=== PATIENT | female | born 1980 | race African-American/Black ===

== ENCOUNTER 2018-07-23 00:12 | Emergency (ER) | payer SELFPAY ==
[~2018-07-23] VITALS: Ht 175.3 cm; Wt 132.0 kg
[2018-07-23 03:10] LABS: BASOPHILS % 0.9 % (0.0-2.0); EOSINOPHILS % 0.4 % (0.0-5.0); HEMATOCRIT. 36.3 % (36.0-48.0); HEMOGLOBIN. 12.2 g/dL (12.0-16.0); LYMPHOCYTES % 29.2 % (20.0-50.0); MEAN CORPUSCULAR HEMOGLOBIN 28.6 pg (28.0-32.0); MEAN CORPUSCULAR VOLUME 85.1 fL (81.0-99.0); MEAN PLATELET VOLUME 8.6 fl (7.4-10.4); MONOCYTES % 6.3 % (2.0-8.0); NEUTROPHILS % 63.2 % (40.0-76.0); PLATELET 289 x1000/uL (130-400); RED BLOOD CELL COUNT 4.27 mill/uL (4.2-5.4); RED CELL DISTRIBUTION WIDTH 14.3 % (11.6-14.6)
[2018-07-23 03:11] LABS: CHLORIDE 109 mEq/L (98-107)
[2018-07-23 04:40] VITALS: BP 119/70
== END 2018-07-23 04:30 | disposition home or self-care (01) ==
LOC: ER 00:12
DX: R07.89 Other chest pain (principal); R00.2 Palpitations; R20.0 Anesthesia of skin; Z88.5 Allergy status to narcotic agent
CPT/HCPCS: 36415; 71045; 80053; 84443; 85025; 93005; 99284; Z7610